=== PATIENT | female | born 1965 | race Two or more races ===

== ENCOUNTER → 2018-08-14 | Outpatient (CLI) | payer OTHER ==
[2018-03-07 13:20] VITALS: BP 146/77
[~2018-08-14] MED LIST: DICL75TA PO; ERGO500027 PO; LEVO75TA PO; LOSA50TA7 PO; OMEP20TA63 PO
--- NOTE | 2018-08-14 12:24 | RAD ---
DATE: 08/14/2018 EXAM: MAMMO BREEZY BHANU MORRISSEY, BREAST LEFT HISTORY: Fibrocystic disease, left breast lumps COMPARISON: 05/08/2016 This study was interpreted with the benefit of Computerized Aided Detection (CAD). Breast Density: HETERO The breast parenchyma is heterogenously dense, which could reduce sensitivity of mammography. Breast parenchyma level C. FINDINGS: 2-D and 3-D tomosynthesis imaging was performed in CC and MLO projections. Skin markers were placed on the skin surface over the areas of palpable concern in the left breast as reported by the patient at the 12:00 and 7:00 locations. Dense heterogeneous fibroglandular shadows are evident. No focal breast mass or suspicious microcalcifications are seen. No new or enlarging breast densities are evident. Left breast ultrasound, 08/14/2018: We first targeted the inferior aspect of the left breast at the 6-7:00 location. Heterogeneous fibroglandular shadows are evident. No mass or abnormal fluid collection is seen. We then targeted the area of clinical concern at the 12:00 location. Approximately 4 cm from the nipple there is an oval-shaped smooth hypoechoic nodule with posterior acoustic enhancement. It is wider than tall measuring 7 mm in length. The appearance suggests a complicated cyst. Slightly more laterally at the 12:00 location there is a hypoechoic nodule measuring approximately 9 mm in greatest dimension. It demonstrates internal color flow. Its margins are slightly lobulated. There is no significant posterior acoustic enhancement or shadowing. This is a solid nodule. No other abnormality was seen in this region of the left breast. IMPRESSION: 1. No discrete mammographic abnormality is detected. 2. Probable small complicated left breast cyst at 12:00 location. Sonographic follow-up is suggested. 3. Small solid left breast nodule at the 12:00 location which may be a fibroadenoma, although a circumscribed malignancy cannot be excluded. Ultrasound-guided biopsy is suggested for further evaluation. Note: The findings were discussed with the patient and her relaster at the time of the exam and they understand our recommendation for biopsy. She will follow-up with Dr. Madrigal. BI-RADS CATEGORY: 4 SUSPICIOUS ABNORMALITY- BIOPSY SHOULD BE CONSIDERED RECOMMENDED FOLLOW-UP: BIO BIOPSY RECOMMENDED PQRS compliance statement: Patient information was entered into a reminder system with a target due date for the next mammogram. Mammography is a sensitive method for finding small breast cancers, but it does not detect them all and is not a substitute for careful clinical examination. A negative mammogram does not negate a clinically suspicious finding and should not result in delay in biopsying a clinically suspicious abnormality. "Our facility is accredited by the [employer] Mammography Program."
== END | disposition home or self-care (01) ==
LOC: MAMMO 10:35
PROVIDERS: ATTEND Family Medicine
DX: N63.21 Unspecified lump in the left breast, upper outer quadrant (principal)
CPT/HCPCS: 76641; 77066; G0279; 77062

== ENCOUNTER → 2018-09-25 | Outpatient (CLI) | payer OTHER ==
[2018-03-07 13:20] VITALS: BP 146/77
[~2018-09-25] MED LIST changes: +LOSA-73 PO; -LOSA50TA7 PO
--- NOTE | 2018-09-26 16:09 | PATHOLOGY ---
[facility] Accession Number: [id number] . 01 Material submitted: . LEFT BREAST MASS . 01 Clinical history: . Left breast mass, 9 mm . 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 - Tiny microcalcifications present focally. . (Please see comment) . (SKM:data sme; 09/26/2018) MBR/09/26/2018 . 02 Comment: Review/concur: Dr. Landry. . (SKM:data sme; 09/26/2018) . 02 Electronically signed: . Esvin Perez MD, Pathologist NPI- [id number] . 01 Gross description: . Received in formalin labeled "Geri Bills, left breast," are multiple needle cores of yellow-nj fibrofatty tissue measuring 1.5 x 0.6 x 0.2 cm in aggregate dimensions. The tissue submitted in its entirety in cassette A1 through A3. The cold ischemic time is 10 minutes. The total formalin fixation time is approximately 10 hours. (TSD; 09/25/2018) TOB/TOB . 02 Microscopic: . . . 02 Pathologist provided ICD-10: D24.2 . 02 CPT . 950147 Specimen Comment: A courtesy copy of this report has been sent to Specimen Comment: [phone], . Specimen Comment: Report sent to DR FELIZ / DR SIMMS Specimen Comment: A duplicate report has been generated due to demographic updates. Performed at: [address], [place], [place] [id number] MD Fahad Kelley MD Phone: [phone] Performed at: 02 [facility] [address] [place], [place] [id number] MD Ector Kaur MD Phone: [phone]
--- NOTE | 2018-09-27 09:14 | RAD ---
CLINICAL INDICATION: Left breast mass PRE-PROCEDURAL CONSULTATION: Details of the procedure and possible limitations and complications were discussed with the patient. After addressing her questions and concerns, written informed consent was obtained. A poultry buyer was used. A time out was then taken to verify patient's name and date of as well as site and laterality. PROCEDURE: The mass at the 12:00 position within the left breast was targeted under ultrasound. The skin of the left breast was cleansed and prepped in the typical sterile fashion. 8 cc of 1% lidocaine was used for local anesthesia. A small skin incision was then made to permit passage of a 14 gauge spring activated biopsy device. 5 core specimens were obtained. A ribbon clip was then deployed at the biopsy site. Hemostasis was achieved. The patient tolerated the procedure well with no immediate complications. Post-procedural digital mammographic imaging of the left breast demonstrate the S shaped clip in appropriate position. IMPRESSION: Successful ultrasound guided core needle biopsy of a mass at the 12:00 position within the left breast. Pathology is pending.
== END | disposition home or self-care (01) ==
LOC: US 11:50
PROVIDERS: ATTEND Surgery
DX: N64.89 Other specified disorders of breast (principal); R92.0 Mammographic microcalcification found on diagnostic imaging of breast; I10 Essential (primary) hypertension; Z90.49 Acquired absence of other specified parts of digestive tract
CPT/HCPCS: 19083; 77065; 88305; C1713; 19081; 76942

== ENCOUNTER → 2019-07-09 | Outpatient (CLI) | payer OTHER ==
[2018-03-07 13:20] VITALS: BP 146/77
--- NOTE | 2019-07-09 09:23 | RAD ---
EXAM: Abdomen sonogram. HISTORY: Elevated liver function laboratory values. TECHNIQUE: Sonographic imaging of the abdomen was performed. COMPARISON: None. FINDINGS: There is hepatomegaly and hepatic steatosis. No focal hepatic lesion is seen. The common bile duct is normal in caliber. The gallbladder is surgically absent. The right kidney is unremarkable. The pancreas, aorta and inferior cava are partially obscured due to bowel gas. IMPRESSION: 1. Hepatomegaly and hepatic steatosis. 2. Cholecystectomy. 3. Partially obscured midline structures due to bowel gas. Electronically signed by: Gwendolyn Lockett MD (07/09/2019 9:20 AM) [facility]
== END | disposition home or self-care (01) ==
LOC: US 08:34
PROVIDERS: ATTEND Family Medicine
DX: R16.0 Hepatomegaly, not elsewhere classified (principal); K76.0 Fatty (change of) liver, not elsewhere classified; Z90.49 Acquired absence of other specified parts of digestive tract; R94.5 Abnormal results of liver function studies
CPT/HCPCS: 76705